=== PATIENT | male | born 1995 | race American Indian/Alaskan Native ===

== ENCOUNTER 2021-01-31 04:10 | Emergency (ER) | payer OTHER, BC ==
[2021-01-31 04:25] VITALS: BP 143/95
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
== END 2021-01-31 08:50 | disposition home or self-care (01) ==
LOC: ED 04:10
DX: M25.532 Pain in left wrist (principal); M79.642 Pain in left hand; Z79.899 Other long term (current) drug therapy; V49.49XA Driver injured in collision with other motor vehicles in traffic accident, initial encounter; Y92.410 Unspecified street and highway as the place of occurrence of the external cause; Y93.89 Activity, other specified; Y99.8 Other external cause status
CPT/HCPCS: 99283